=== PATIENT | female | born 1990 | race African-American/Black ===

== ENCOUNTER 2021-04-10 19:00 | Emergency (ER) | payer OTHER, SELFPAY ==
[2021-04-10 19:02] VITALS: BP 130/76; PULSE 88; RESP 18; TEMP 36.8; O2SAT 98
--- NOTE | 2021-04-10 20:12 | ED.SKABFB ---
HPI - Skin/Abscess/Foreign Bdy General Chief complaint: Skin/Abscess/Foreign Body Stated complaint: Rash Time Seen by Provider: 04/10/21 19:50 Source: patient Mode of arrival: ambulatory Limitations: no limitations History of Present Illness HPI narrative: This is a 30 year old female that presents to the ER for rash present x 2 days. Reports the rash started in her armpits and has now spread to her lower legs. Reports painful red bumps. Reports mild itching. Denies fever or discharge. Related Data Allergies Allergy/AdvReac Type Severity Reaction Status Date / Time No Known Allergies Allergy Verified 04/10/21 19:05 Review of Systems Review of Systems: CONSTITUTIONAL: Denies fever SKIN: Reports rash and itching. All systems reviewed & are unremarkable except as noted in HPI and below PMFSH Past Medical History Medical History (Updated 04/10/21 @ 20:20 by Alyx Jaramillo PA-C) No active medical problems Social History Social History (Updated 08/20/19 @ 17:14 by Jose Luis Momin PA-C) Smoking status: Current every day smoker Exam Narrative: GENERAL: Well-appearing, well-nourished, and in no acute distress. HEAD: Normocephalic, atraumatic. EYES: EOMI. EXTREMITIES: Normal range of motion. No edema. SKIN: Warm, dry. Red, papular rash present in the bilateral axilla and lower legs. Areas are tender to touch, no central fluctuance to suggest abscess NEURO: No focal deficits. Alert and oriented x3. PSYCH: Normal mood and affect Course Vital Signs Vital signs: Vital Signs Temperature 98.3 F 04/10/21 19:02 Pulse Rate 88 04/10/21 19:02 Respiratory Rate 18 04/10/21 19:02 Blood Pressure 130/76 04/10/21 19:02 Pulse Oximetry 98 04/10/21 19:02 Temperature 98.3 F 04/10/21 19:02 Pulse Rate 88 04/10/21 19:02 Respiratory Rate 18 04/10/21 19:02 Blood Pressure 130/76 04/10/21 19:02 Pulse Oximetry 98 04/10/21 19:02 MDM - Skin/Abscess/Foreign Bdy MDM Narrative Medical decision making narrative: Patient presents the emergency department for rash consistent with possible folliculitis. Patient will be started on oral antibiotics. She is to follow-up with her primary care doctor. She was given warnings to return to the ER Critical Care Time Critical Care Time Critical Care Time: No Discharge Plan Discharge Clinical Impression: Folliculitis Patient Disposition: Home, Self-Care Condition: Stable Instructions: Antibiotic Form, Folliculitis (ED) Additional Instructions: Return to the emergency department if you experience fever, redness and swelling of your wounds, abnormal drainage from your wounds, or any other symptoms that are concerning to you Keep the areas clean and dry with mild soap and water. Avoid shaving until your rash resolves. Take a Pepcid and Claritin daily. Take antibiotic as prescribed Follow-up with your primary care doctor Prescriptions: New cephalexin 500 mg capsule 500 mg PO Q6H 10 Days Qty: 40 RF: 0 Follow-up/Referrals: PHYSICIAN NOT ON STAFF,NONSTAFF [Primary Care Provider] - 1 Week
== END 2021-04-10 20:32 | disposition home or self-care (01) ==
PROVIDERS: Emergency Provider Emergency Medicine
DX: L73.9 Follicular disorder, unspecified (principal)
CPT/HCPCS: 99283

== ENCOUNTER 2021-08-17 12:37 | Outpatient (CLI) | payer OTHER, SELFPAY ==
--- NOTE | ~2021-08-17 | US_ITS ---
EXAMINATION: US OB <= 14 weeks fetus DATE: 08/17/2021 13:34 INDICATION: First trimester dating TECHNIQUE: Real-time pelvic transabdominal and transvaginal ultrasound was performed. COMPARISON: None. FINDINGS: The uterus measures 14.8 x 8.2 x 10.1 cm. There is an intrauterine gestational sac. There is a 3.5 x 1.1 x 3.6 cm hypoechoic area adjacent to the gestational sac. A yolk sac is identified. Fe halley heart motion is identified measuring 167 beats per minute (bpm) by M-mode Doppler. The chilkoot n rump length measures 4.5 cm , which correlates with an estimated gestational age of 11 weeks and 2 day(s) (+/-) 7 day(s). The right ovary is not visualized however no right adnexal abnormality is seen. The left ovary measur es 3.4 x 1.9 x 2.0 cm. There is normal vascular flow in the left ovary. There is no free fluid in the pelvis. IMPRESSION: 1. Live intrauterine with an estimated gestational age of 11 weeks and 2 day(s) (+/-) 7 day (s) and an estimated delivery date of 03/06/2022. 2. Small subchorionic hematoma. Reviewed, dictated and finalized at location A. [facility] [employer] IMPRESSION: 1. Live intrauterine with an estimated gestational age of 11 weeks an d 2 day(s) (+/-) 7 day(s) and an estimated delivery date of 03/06/2022. 2. Small subchorionic hematoma.
== END 2021-08-17 12:38 | disposition home or self-care (01) ==
PROVIDERS: Visit Provider Obstetrics & Gynecology
DX: Z36.9 Encounter for antenatal screening, unspecified (principal); O46.91 Antepartum hemorrhage, unspecified, first trimester; Z3A.11 11 weeks gestation of pregnancy
CPT/HCPCS: 76801

== ENCOUNTER 2021-08-27 05:57 | Emergency (ER) | payer OTHER, SELFPAY ==
--- NOTE | ~2021-08-27 | US_ITS ---
EXAMINATION: US OB <= 14 weeks fetus DATE: 08/27/2021 08:52 INDICATION: Nausea. Vaginal discharge. . TECHNIQUE: Real-time transabdominal pelvic ultrasound was performed. COMPARISON: Ultrasound 08/17/2021 FINDINGS: The uterus measures 14.8 x 10.3 x 10.4 cm. There is an intrauterine gestational sac. A fetus is note d and shows movement. The right ovary was not the last. The left ovary measures 2.2 x 0.8 x 2.2 cm. T here is no free fluid in the pelvis. IMPRESSION: 1. Single living intrauterine gestation with estimated date of delivery of 03/06/2022 based on the ul trasound from 08/17/2021. The patient terminated the exam early. Reviewed, dictated and finalized at location A. ARY DIRECTOR IMPRESSION: 1. Single living intrauterine gestation with estimated date of delivery of 02/07 based on the ultrasound from 08/17/2021. The patient terminated the exam early.
[2021-08-27 06:01] VITALS: BP 113/71; PULSE 71; RESP 17; TEMP 36.3; O2SAT 100
[2021-08-27 06:42] LABS: Basophils Percent Auto 0.3 % (0.2-1.2); Eosinophils Absolute Auto 0.1 K/mm3 (0-0.3); Eosinophils Percent Auto 0.8 % (0-4.4); Hematocrit 37.4 % (37.0-47.0); Hemoglobin 12.4 g/dL (12.0-15.0); Immature Granulocyte Absolute 0.04 K/mm3 (0.00-0.031); Immature Granulocyte Percent A 0.7 % (0-0.5); Lymphocytes Absolute Auto 1.29 K/mm3 (0.9-3.2); Lymphocytes Percent Auto 21.8 % (18.3-44.2); Mean Corpuscular HGB Conc 33.2 g/dl (32-36); Mean Corpuscular Hemoglobin 31.6 pg (26-34); Mean Corpuscular Volume 95.2 fl (80-100); Mean Platelet Volume 8.8 fl (7.4-10.4); Monocytes Absolute Auto 0.5 K/mm3 (0.1-0.6); Monocytes Percent Auto 8.1 % (2.6-8.5); Neutrophils Percent Auto 68.3 % (45.5-73.1); Platelet Count Result 230 k/mm3 (150-375); Red Blood Count 3.93 M/mm3 (4.2-5.4); Red Cell Distribution Width 11.9 % (11.5-14.5); White Blood Count 5.9 K/mm3 (4.5-10.0)
[2021-08-27 06:58] LABS: Add Urine Microscopic? YES; Appearance Urine Cloudy (Clear); Bacteria Urine Trace /hpf; Bilirubin Urine Negative (Negative); Blood Urine 1+ (Negative); Color Urine Yellow (Yellow); Glucose Urine UA Negative (Negative); Ketones Urine Negative (Negative); Leukocyte Esterase Ur Trace LEU/UL (Negative); Mucus Urine Few /lpf; Nitrate Urine Negative (Negative); Protein Urine 1+ mg/dL (Negative); Specific Grav Ur 1.024 (1.001-1.035); Squamous Epithelial Cell Urine Many /hpf (Few)
[2021-08-27 07:01] LABS: Alanine Aminotransferase 14 U/L (4-35); Albumin Level 4.1 g/dL (3.5-5.1); Alkaline Phosphatase 50 U/L (38-126); Anion Gap 5 mmol/L (8-16); Aspartate Amino Transferase 28 U/L (14-36); Bilirubin,Total 0.5 mg/dL (0.2-1.3); Blood Urea Nitrogen 8 mg/dL (7-17); Carbon Dioxide 26 mmol/L (22-30); Chloride 101 mmol/L (98-107); Estimated CRCL calculation 118 ml/min; Estimated Glomerular Filt Rate > 60; Glucose 92 mg/dL (65-110); Potassium 4.1 mmol/L (3.4-5.0); Sodium 132 mmol/L (137-145)
--- NOTE | 2021-08-27 09:08 | ED.FEMALEGU ---
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 Patient is 3, para 2, 0, 12 weeks . Patient was seen by her MINE INSPECTOR FEDERAL few weeks ago for similar symptoms. Related Data Home Medications Medication Instructions Recorded Confirmed No Home Medications 08/27/21 08/27/21 Allergies Allergy/AdvReac Type Severity Reaction Status Date / Time No Known Allergies Allergy Verified 08/27/21 06:05 Review of Systems Review of Systems: CONSTITUTIONAL: Denies fever, chills, or sweats. EYES: Denies visual changes, redness, or discharge. ENT: Denies rhinorrhea, congestion, sore throat, or otalgia. CARDIOVASCULAR: Denies chest pain, palpitations, or edema. RESPIRATORY: Denies cough or dyspnea. GASTROINTESTINAL: Denies abdominal pain, nausea, vomiting, or diarrhea. GENITOURINARY: Denies dysuria or hematuria. SKIN: Denies rash or itching. MUSCULOSKELETAL: Denies back pain, joint pain, or myalgia. NEUROLOGIC: Denies headache, numbness, or weakness. PSYCHIATRIC: Denies anxiety or depression. PMFSH Past Medical History Medical History No active medical problems Social History Social History Smoking status: Current every day smoker Exam Narrative: General appearance: Well-developed, well-nourished Skin: Normal color Head: Normocephalic, nontraumatic Eyes: Clear conjunctiva ENT: Oropharynx normal, ears normal, nose normal Neck: Supple, nontender Chest and respiratory: Airway patent, no respiratory distress, no accessory muscle use Heart: Regular rate/rhythm Abdomen: Soft, nontender, no organomegaly, quiet bowel sounds Vascular: Normal peripheral pulses, normal capillary refill. Musculoskeletal: Normal range of motion, nontender back Neurologic: Alert and oriented ?3, PHYSICS PROFESSOR is normal as tested, no gross motor deficit Course Course Emergency Course: Stable Reevaluation(s) Reevaluation #1: Patient declined pelvic exam, also terminated the ultrasound procedure early Date: 08/27/21 Time: 09:25 Vital Signs Vital signs: Vital Signs Temperature 36.3 C L 08/27/21 06:01 Pulse Rate 71 08/27/21 06:01 Respiratory Rate 17 08/27/21 06:01 Blood Pressure 113/71 08/27/21 06:01 Pulse Oximetry 100 08/27/21 06:01 Temperature 36.3 C L 08/27/21 06:01 Pulse Rate 71 08/27/21 06:01 Respiratory Rate 17 08/27/21 06:01 Blood Pressure 113/71 08/27/21 06:01 Pulse Oximetry 100 08/27/21 06:01 MDM - Female Genitourinary Lab Data Result diagrams: 08/27/21 06:37 08/27/21 06:37 Labs: Lab Results 08/27/21 08/27/21 08/27/21 Range/Units 06:37 06:37 06:37 WBC 5.9 (4.5-10.0) K/mm3 RBC 3.93 L (4.2-5.4) M/mm3 Hgb 12.4 (12.0-15.0) g/dL Hct 37.4 (37.0-47.0) % MCV 95.2 (80-100) fl MCH 31.6 (26-34) pg MCHC 33.2 (32-36) g/dl RDW 11.9 (11.5-14.5) % Plt Count 230 (150-375) k/mm3 MPV 8.8 (7.4-10.4) fl Immature Gran % (Auto) 0.7 H (0-0.5) % Neut % (Auto) 68.3 (45.5-73.1) % Lymph % (Auto) 21.8 (18.3-44.2) % Logan % (Auto) 8.1 (2.6-8.5) % Eos % (Auto) 0.8 (0-4.4) % Baso % (Auto) 0.3 (0.2-1.2) % Lymph # (Auto) 1.29 (0.9-3.2) K/mm3 Logan # (Auto) 0.5 (0.1-0.6) K/mm3 Eos #
== END 2021-08-27 09:37 | disposition home or self-care (01) ==
PROVIDERS: Emergency Medicine; Emergency Provider Emergency Medicine
DX: O20.0 Threatened abortion (principal); O99.331 Smoking (tobacco) complicating pregnancy, first trimester; F17.200 Nicotine dependence, unspecified, uncomplicated; Z3A.12 12 weeks gestation of pregnancy
CPT/HCPCS: 36415; 76801; 80053; 81001; 81025; 84702; 85025; 85461; 87086; 99284

== ENCOUNTER 2021-09-14 12:51 | Outpatient (CLI) | payer OTHER, SELFPAY ==
--- NOTE | ~2021-09-14 | US_ITS ---
EXAMINATION: US OB follow up DATE: 09/14/2021 13:35 INDICATION: Subchorionic hematoma, second trimester TECHNIQUE: Real-time ultrasound of the pelvis was performed. The interpreting radiologist was not pre sent for the study. COMPARISON: 08/27/2021 FINDINGS: There is a single living fetus in breech presentation. No persistent subchorionic hematoma is identified. The placenta is posterior. cardiac activity and movement are noted. heart rate is 132 beats per minute (bpm). The amniotic fluid index is subjectively normal. The following biometric data were obtained: Biparietal diameter (BPD): 3.3 cm; head circumference (HC): 12. cm; abdominal circumference (AC): 10. 1 cm; femur length (FL): 1.8 cm. These measurements are concordant. Estimated weight is 134 g +/- 20 g, which correlates with the 74th percentile when 03/06/2022 is used as estimated date of delivery. As single measurements, these parameters are each equal to the following estimated gestational ages w ith ranges of +/- 2 standard deviations: BPD: 16 weeks 3 days +/- 1 weeks 1 days. HC: 16 weeks 0 days +/- 1 weeks 1 days. AC: 16 weeks 1 days +/- 1 weeks 5 days. FL: 15 weeks 2 days +/- 1 weeks 3 days. estimated gestational age based solely on measurements from this exam is 16 weeks 0 days +/- 1 weeks 1 days. IMPRESSION: 1. Single living fetus in breech presentation. 2. No persistent subchorionic hematoma identified. 3. Estimated weight is 134 g +/- 20 g, which correlates with the 74th percentile when 03/06/2022 is used as estimated date of delivery. Reviewed, dictated and finalized at location F. GER CODING IMPRESSION: 1. Single living fetus in breech presentation. 2. No persistent subchorionic hematoma identified. 3. Estimated weight is 134 g +/- 20 g, which correlates with the 74th per centile when 03/06/2022 is used as estimated date of delivery.
== END 2021-09-14 12:52 | disposition home or self-care (01) ==
PROVIDERS: Visit Provider Obstetrics & Gynecology
DX: O36.8920 Maternal care for other specified fetal problems, second trimester, not applicable or unspecified (principal); Z3A.16 16 weeks gestation of pregnancy
CPT/HCPCS: 76816

== ENCOUNTER 2021-10-12 08:18 | Outpatient (CLI) | payer OTHER, SELFPAY ==
--- NOTE | ~2021-10-12 | US_ITS ---
US OB /maternal detail DATE: 10/12/2021 08:59 INDICATION: anatomy screen TECHNIQUE: Real-time imaging and Doppler analysis COMPARISON: 09/14/2019 obstetrical ultrasound FINDINGS: Live retana intrauterine gestation, fetus in vertex presentation, longitudinal lie with heart rate of 150 bpm. Normal size of cerebral ventricles. Cerebellum is normal. Cisterna magna, nuchal fold are libby l. The spine appears intact on transverse and longitudinal images. diaphragm is intact. F luid is demonstrated in the stomach and kidneys. No hydronephrosis. Three-vessel umbilica l cord is noted with normal insertion at abdominal wall. male external genitalia are demonstrated. extremities are demonstrated. Posterofundal placenta. Biparietal diameter 4.36 cm; 19 weeks 1 day Head circumference 15.96 cm; 18 weeks 6 days Abdominal circumference 14.34 cm; 19 weeks 5 days Femur length 3.13 cm; 19 weeks 5 days Composite age by Hadlock formula based upon the current measurements would be 19 weeks 3 days +/- 1 w cocopah 3 days with ODALYS of 03/05/2022, compared to 03/06/2022 by LMP. Estimated weight is 301.7 +/- 45.3 g. Estimated weight-GP: 64.2% Head circumference/abdominal circumference 1.11, within normal range of 1.0-1.26 Femur length/head circumference 19.63, slightly above normal range of 16.40-80.94 IMPRESSION: Normal anatomy screen Reviewed, dictated and finalized at Location A. Reviewed, dictated and finalized at location B. ACUTE DIALYSIS IMPRESSION: Normal anatomy screen
== END 2021-10-12 08:19 | disposition home or self-care (01) ==
PROVIDERS: Visit Provider Obstetrics & Gynecology Gynecology
DX: Z34.92 Encounter for supervision of normal pregnancy, unspecified, second trimester (principal); Z3A.19 19 weeks gestation of pregnancy
CPT/HCPCS: 76805

== ENCOUNTER 2021-12-28 11:06 | Outpatient (CLI) | payer OTHER, SELFPAY ==
--- NOTE | ~2021-12-28 | US_ITS ---
EXAMINATION: US OB follow up DATE: 12/28/2021 12:05 INDICATION: Estimated size greater than expected for estimated gestational age TECHNIQUE: Real-time ultrasound of the pelvis was performed. The interpreting radiologist was not pre sent for the study. COMPARISON: 10/12/2021 FINDINGS: There is a single living fetus in transverse lie. The placenta is posterior. heart rate is 134 beats per minute (bpm). The amniotic fluid index is 12.8 cm, which is normal (5th%-95%: 9.0-23.4 cm at 30 weeks estimated gestational age). The following biometric data were obtained: BPD: 7.4 cm -> 29 weeks 5 days Head circumference: 28.4 cm -> 31 weeks 1 days Abdominal circumference: 27.6 cm -> 31 weeks 5 days Femur length: 5.8 cm -> 30 weeks 2 days These measurements are concordant. Head circumference to abdominal circumference ratio: 1.03 (normal range 0.96-1.18). Estimated weight: 1690 g (+/-) 254 g or 3 lbs. 12 oz. (+/-) 9 oz. IMPRESSION: 1. Single living fetus in transverse lie with heart rate of 134 bpm. 2. Normal amniotic fluid index of 12.8 cm. 3. Estimated weight is 65th percentile by Hadlock criteria when 03/06/2022 is used as the estima allison date of delivery (ODALYS). Please correlate with clinical information or earlier ultrasounds for mos t accurate ODALYS. Reviewed, dictated and finalized at location A. IMPRESSION: 1. Single living fetus in transverse lie with heart rate of 134 bpm. 2. Normal amniotic fluid index of 12.8 cm. 3. Estimated weight is 65th percentile by Hadlock criteria when 03/06/2022 is used as the estimated date of delivery (ODALYS). Please correlate with clinica l information or earlier ultrasounds for most accurate ODALYS.
== END 2021-12-28 11:07 | disposition home or self-care (01) ==
LOC: ANHIMG 11:09
PROVIDERS: Visit Provider Obstetrics & Gynecology Gynecology
DX: O36.60X0 Maternal care for excessive fetal growth, unspecified trimester, not applicable or unspecified (principal); Z3A.00 Weeks of gestation of pregnancy not specified
CPT/HCPCS: 76816

== ENCOUNTER 2022-02-11 14:24 | Outpatient (RCR) | payer OTHER, SELFPAY ==
--- NOTE | 2022-02-11 17:45 | PTOPEVAL ---
PHYSICAL THERAPY EVALUATION AND DISCHARGE NOTE Thank you for referring Yesi Siddiqi to [facility].? Evaluated [place] today for back pain in . Evaluation reveals significant limitation in mobility of spine and ribs and spasms to lumbar musculature. Due to stage of her , PT treatments are limited. She was provided with HEP for stretching and advice to manage symptoms until delivery. No further care plan developed at this time. Please review, sign, date and return this plan of care MICHELLE. I agree with and certify that the following plan of care is medically necessary. Referring Physician Date Attending Provider: Germaine Serrato MD Diagnosis low back pain Onset 3-4 weeks ago Subjective Information has a lot of lower back pain Query Text:As Reported By Patient/ and numbness. She is in her Family last month of pregancy (37 weeks) and pain started about 3-4 weeks ago. She states that she has numbness in the right leg after sitting too long. States that sitting, standing up, walking are all painful. Self Report Pain Assessment Back Reported Pain Level 7 Pain Score Pain Score 7: Self Report Interventions Used Interventions Used By Clinicians Exercise,Joint Mobilization Pain Relief Interventions Used By None Patient Cervical and Lumbar ROM Lumbar ROM Lumbar Comments limited ROM secondary to abdomen; did demonstrate a olena's sign upon return to standing Posture Additional Posture Comments patient tends to weight shift toward the right LE; typical posture with increased lordsis lumbar spine and stiff thoracic spine Palpation significant spasm to bilateral lower back paraspinals, rhomboids; decreased scapular mobility on left; significant hypomobiity of thoracic spine and ribs moreso than might be expected during General Exercise Exercise Description -sitting piriformis stretch Query Text:Record Sets, Reps, -sitting hamstring stretch Resistance, and Position -sidelying thoracic rotation stretch -standing doorway latissimus and quadratus stretch --discussed findings of assessment and described
== END 2022-02-12 14:40 | disposition home or self-care (01) ==
LOC: ANHPT 14:24
PROVIDERS: Referring Provider Obstetrics & Gynecology Gynecology; Visit Provider Obstetrics & Gynecology Gynecology
DX: M54.9 Dorsalgia, unspecified (principal)
CPT/HCPCS: 97110; 97162

== ENCOUNTER 2022-02-18 10:03 | Inpatient (IN) | payer OTHER, SELFPAY ==
[2022-02-18] VITALS (170 sets, daily range): BP systolic 59–150; BP diastolic 30–131; PULSE 39–219; RESP 12–19; TEMP 36.1–37.6; O2SAT 73–100; BMI 37.8
--- NOTE | 2022-02-18 10:45 | WPDOBADMIT ---
Obstetrics - Admit Note Admission Note: record reviewed. No pertinent additions to the history and/or any subsequent changes in the physical findings that are not consistent with the expected course of the were found. Additions to the history and/or subsequent changes in the physical findings follow. None. The patient is admitted to Labor and delivery with grossly ruptured membranes. Patient is not dario. Cervix per RN is 2cm thick and high. Bedside ultrasound is performed and vertex position is noted. Induction of labor versus is waiting [id number] before starting Pitocin were reviewed with the patient. She prefers to see if labor starts within the 6hour time frame. heart tones are category 1. Patient has consented to management of her labor by Kourtney Zulugaa CNM and report is given to her.
[2022-02-18 11:15] LABS: Basophils Percent Auto 0.3 % (0.2-1.2); Eosinophils Absolute Auto 0.1 K/mm3 (0-0.3); Eosinophils Percent Auto 1.2 % (0-4.4); Hematocrit 31.7 % (37.0-47.0); Hemoglobin 10.3 g/dL (12.0-15.0); Immature Granulocyte Absolute 0.09 K/mm3 (0.00-0.031); Lymphocytes Absolute Auto 1.39 K/mm3 (0.9-3.2); Lymphocytes Percent Auto 14.8 % (18.3-44.2); Mean Corpuscular HGB Conc 32.5 g/dl (32-36); Mean Corpuscular Hemoglobin 29.3 pg (26-34); Mean Corpuscular Volume 90.1 fl (80-100); Mean Platelet Volume 9.6 fl (7.4-10.4); Monocytes Percent Auto 10.3 % (2.6-8.5); Neutrophils Absolute Auto 6.8 K/mm3 (1.3-6.7); Neutrophils Percent Auto 72.4 % (45.5-73.1); Platelet Count Result 254 k/mm3 (150-375); Red Blood Count 3.52 M/mm3 (4.2-5.4); Red Cell Distribution Width 13.6 % (11.5-14.5); White Blood Count 9.4 K/mm3 (4.5-10.0)
[2022-02-18] MEDS: LACTATED RINGERS 1,000 ML 125 ML IV CONT ×4 (11:29→18:20)
[2022-02-18] MEDS: AMPICILLIN 2 GM/NS 100 ML 2 GM/100 ML BAG IVPB (11:30)
--- NOTE | 2022-02-18 11:46 | LDADM ---
This patient, Ervin Siddiqi, was admitted to Labor/Delivery/Recovery 105 on 02/18/22 at 10:03. Plans for labor, pain management and were discussed with patient. Patient/family oriented to hospital policies and general routines including ID bracelet, bed and alarms, visiting hours, pain management, procedures, bathroom and other care routines, personal items, smoking policy, room service/diet and guest tray routines, security routines, and visiting hours. Patient/Family are encouraged to report perceived risks to care and to ask questions if they do not understand what they are told or what they should do. See OBIX for further documentation.
--- NOTE | 2022-02-18 14:52 | WPDANESEPPF ---
Anes - Initial Pre Proc Eval Procedure: labor epidural Date/Time: 02/18/22 14:52 Surgeon: Germaine Serrato MD Pre Op Diagnosis: labor pain Pre Op Diagnosis: labor Patient Data Age: 31 Gender: F Height: 1.63 m Weight: 100 kg Last Vital Signs Temp 36.8 C 02/18/22 14:00 Pulse 78 02/18/22 14:50 BP 107/59 L 02/18/22 14:50 Pulse Ox 100 02/18/22 14:49 Allergies Allergy/AdvReac Type Severity Reaction Status Date / Time No Known Allergies Allergy Verified 02/18/22 11:05 Home Medications Medication Instructions Recorded Confirmed Type vit no.133-ferrous 1 tablet PO DAILY 02/18/22 02/18/22 History fumarate 28 mg-folic acid 800 mcg tablet () Laboratory Tests 02/18/22 02/18/22 02/18/22 11:00 11:00 11:00 WBC 9.4 K/mm3 K/mm3 (4.5-10.0) RBC 3.52 M/mm3 L M/mm3 (4.2-5.4) Hgb 10.3 g/dL L g/dL (12.0-15.0) Hct 31.7 % L % (37.0-47.0) MCV 90.1 fl fl (80-100) MCH 29.3 pg pg (26-34) MCHC 32.5 g/dl g/dl (32-36) RDW 13.6 % % (11.5-14.5) Plt Count 254 k/mm3 k/mm3 (150-375) MPV 9.6 fl fl (7.4-10.4) Immature Gran % (Auto) 1.0 % H % (0-0.5) Neut % (Auto) 72.4 % % (45.5-73.1) Lymph % (Auto) 14.8 % L % (18.3-44.2) Kimball % (Auto) 10.3 % H % (2.6-8.5) Eos % (Auto) 1.2 % % (0-4.4) Baso % (Auto) 0.3 % % (0.2-1.2) Lymph # (Auto) 1.39 K/mm3 K/mm3 (0.9-3.2) Kimball # (Auto) 1.0 K/mm3 H K/mm3 (0.1-0.6) Eos # (Auto) 0.1 K/mm3 K/mm3 (0-0.3) Baso # (Auto) 0.0 K/mm3 K/mm3 (0.0-0.1) Abs Immat Gran (auto) 0.09 K/mm3 H K/mm3 (0.00-0.031) Absolute Neuts (auto) 6.8 K/mm3 H K/mm3 (1.3-6.7) Absolute Nucleated RBC 0.0 K/mm3 K/mm3 (0.0-0.012) Nucleated RBC % 0.0 % % (0.0-0.2) RPR Pending Blood Type B Positive Antibody Screen Negative Patient hx anesthesia problems: none Family hx anesthesia problems: none Results Review: All pre-operative results and documents have been reviewed as part of the pre-operative evaluation. [facility] Social History Social History Years smoked: 30 Smoking status: Light tobacco smoker Second hand tobacco smoke exposure: Yes Substance use: never Other substance usage details: alcohol early in Spiritual care concerns: No Anes - Eval Final PreProcedure Day of Procedure 02/18/22 14:52 Patient weight: obese ASA classification: II Anesthetic plan: proceed Anesthesia type and monitoring: regional epidural and standard monitoring Results Review: All pre-operative results and documents have been reviewed as part of the pre-operative evaluation. Informed Consent: The patient's anesthetic plan and its attendant risks and benefits were discussed with the patient/family/POA. Questions were solicited and answers provided to the satisfaction of the patient/family/POA.
[2022-02-18] MEDS: AMPICILLIN 1 GM/NS 50 ML 1 GM/50 ML BAG IVPB (15:35)
[2022-02-18] MEDS: OXYTOCIN 30 UNITS/NS 500 ML 30 UNITS/500 ML BAG IV CONT (17:40)
[2022-02-18] MEDS: TERBUTALINE SULFATE 1 MG/ML VIAL (18:41)
[2022-02-18] MEDS: SODIUM CHLORIDE 0.9% IV 300 ML 600 ML I-UTERINE (18:42)
--- NOTE | 2022-02-18 19:22 | PM.IMHP ---
H&P: HPI History of Present Illness Date/Time: 02/18/22 19:22 Chief Complaint: intolerance of labor Narrative: The patient is a 31-year-old 4 para 2 aborta 1 admitted with spontaneous rupture of membranes earlier today not in labor. Patient had progressed to 5cm/ 50% effaced and -3 station. I was called at approximately 4:00 p.m. for an episode of spontaneous bright red bleeding [id number]. On exam the patient was as stated above. Once the clots and bleeding were removed from the vagina and the patient was observed the bleeding stopped. No change in heart tones at that time were noted. Pitocin was begun for prolonged rupture. Patient has had no further progress in her cervical exam Except for now effaced to 80%. heart tracing showed several late decelerations approximately 17 20 which did resolve for [id number]. Patient had a run of decelerations and bradycardic episodes that did eventually respond to position change and terbutaline. I was called when terbutaline was given and arrived at 6:50 p.m.. After reviewing the tracing and discussing the case with the patient it was recommended to proceed with at approximately 6:54 p.m.. The patient many questions and discussion continued for the next half an hour. Patient requested time alone with the father of the baby. When we went back in to discuss further the patient has now agreed to proceed with and is being taken to the operating room. Risks of including bleeding, infection, injury to internal organs, risk if she determine staff future children for were discussed. Risks of not doing the were discussed in detail throughout the conversations. labs B positive, rubella immune, HIV negative, RPR negative, hepatitis-B surface antigen negative group B strep positive. The patient's initial drug screen in the office at 8 weeks revealed positive alcohol and nicotine. Risks of smoking and alcohol use during were discussed throughout the with the patient. She continued to drink alcohol and at 1 point considered aborting the . In addition the patient has continued to smoke cigarettes. Patient has been informed of the risks of alcohol syndrome and changes due to the drinking alcohol and cigarettes. [facility] Past Medical History Medical History (Updated 02/18/22 @ 19:32 by Germaine Serrato MD) (normal spontaneous vaginal delivery) X2 Social History Social History Years smoked: 30 Smoking status: Light tobacco smoker Second hand tobacco smoke exposure: Yes Substance use: never Other substance usage details: alcohol early in Spiritual care concerns: No Meds Home Medications and Allergies Home Medications Medication Instructions Recorded Confirmed Type vit no.133-ferrous 1 tablet PO DAILY 02/18/22 02/18/22 History fumarate 28 mg-folic acid 800 mcg tablet () Allergies Allergy/AdvReac Type Severity Reaction Status Date / Time No Known Allergies Allergy Verified 02/18/22 11:05 Vital Signs Vital Signs - 24 hr 02/18/22 10:30 02/18/22 11:31 02/18/22 11:59 Temperature Pulse Rate 88 87 83 Blood Pressure 116/63 98/67 L 115/68 Pulse Oximetry Oxygen Delivery 02/18/22 12:01 02/18/22 12:16 02/18/22 12:31 Temperature Pulse Rate 82 112 H 85 Blood Pressure 115/67 121/53 L 104/57 L Pulse Oximetry Oxygen Delivery 02/18/22 13:00 02/18/22 13:03 02/18/22 13:16 Temperature 97.8 F Pulse Rate 81 110 H Blood Pressure 107/54 L 124/86 Pulse Oximetry Oxygen Delivery 02/18/22 13:31 02/18/22 14:02 02/18/22 14:20 Temperature Pulse Rate 84 103 H 81 Blood Pressure 100/66 125/92 H 120/63 Pulse Oximetry Oxygen Delivery 02/18/22 14:00 02/18/22 14:31 02/18/22 14:36 Temperature 98.2 F Pulse Rate 78 Blood Pressure 89/67 L Pulse Oxi
[2022-02-18] MEDS: ceFAZolin 2 GM/D5W 50 ML 2 GM/50 ML BAG IVPB (19:24)
--- NOTE | 2022-02-18 19:24 | P.PNOB_ITS ---
Pain Control Date/time seen: 02/18/22 1840 Pain control: epidural Pelvic Exam Dilation (cm): 5 Effacement (%): 80 station: -3 Amniotic membrane status: Ruptured Contractions Monitor mode: Internal Contraction pattern: Irregular Contraction intensity: Strong/Firm Status status: Category ll Assessment and Plan Comments: CNM to bedside for SVE (80/-3) with head not well applied to cervix. FSE applied due to intermittent variable and late decelerations. Prolonged FHT deceleration followed which resoved with maternal repositioning, oxytocin dis continuation, and terbutaline sulfate. IUPC also started during this time. Called Dr. Serrato to come to hospital for further evaluation. Thoroughly discussed FHT decelerations and possible causes with pt and her partner. Answered all pt questions. Also discussed possibility of section with Ervin and her partner. FHTs continue to remain Cat 2.
[2022-02-18] MEDS: diphenhydrAMINE HCl INJ 50 MG/ML VIAL 25 MG IV PUSH (20:03)
[2022-02-18] MEDS: ONDANSETRON INJ 4 MG/2 ML VIAL IV PUSH (20:03)
[2022-02-18] MEDS: KETOROLAC 30 MG/ML VIAL (*BKC) 15 MG IV PUSH (20:05)
--- NOTE | 2022-02-18 20:08 | W.PM.PROC2 ---
Procedure Note - Detailed Date of Procedure 02/18/22 Pre-op Diagnosis Intrauterine at 38 and 4/7 weeks spontaneous rupture of membranes in labor with decelerations and bradycardic episodes Post-op Diagnosis Same Procedure Performed primary low-transverse section Surgeon Germaine Serrato MD Anesthesia Epidural Findings Position was occiput posterior of the male was 6lb 2oz with 6 and 9 Apgars. Uterine fibroids with normal-appearing tubes and ovaries. Small placenta without evidence of abruption. Description of Procedure the patient was taken to the operating room and placed under anesthesia in the dorsal supine position with a leftward tilt. The patient was prepped and draped in the usual sterile fashion. The anesthesia was deemed adequate and a Pfannenstiel skin incision made with a scalpel and carried down to the underlying fascia which was nicked in the midline. The fascial incision was extended laterally using Pinzon scissors. Ochsner was used to tent the fascia which was then dissected off using sharp and blunt dissection. The rectus muscles were in the midline and the peritoneum tented. The peritoneum was entered with Metzenbaum and extended with blunt traction. The bladder blade is placed. The vesicouterine peritoneum was tented with a Peon and entered with Metzenbaum. The incision was extended laterally and the bladder flap created digitally the bladder blade is replaced. The lower uterine segment incised in a transverse fashion with the scalpel. the incision was extended laterally using blunt traction. The infant's head was brought up into the incision and noted to be in the left occiput posterior position. The 's head is delivered while the digital marketing assistant applied fundal pressure. At that time the uterus contracted around the head. The incision was extended the with banded scissors to the left. The was then able to be delivered. The cord was clamped and cut the infant handed to the waiting nursery nurse and high school foreign language teacher. The cord gases and blood were drawn. The placenta was removed using manual traction. The uterus is cleared of all clots and debris and attempted to be exteriorized however due to fibroids this was not successful. There was a fibroid noted at the anterior surface of the uterine incision which is possibly the cause of the difficulty getting the out. The uterine incision was closed using 0 Monocryl in a running locked fashion. Same suture was used to imbricate. Good hemostasis is noted. The gutters are irrigated. The incision was again inspected noted to be hemostatic. The fascia was closed using 0 Vicryl in a running fashion. Subcutaneous tissues were irrigated made hemostatic using Bovie cautery. Subcuticular closure using 4-0 Vicryl with a Umesh needle was performed. Dermaflex was placed over the incision. Patient was given Ancef prior to skin incision. Sponge, needle, and instrument counts are correct per the OR staff. Estimated Blood Loss 740 Urine Output 1,800 Drains Yes ( Santos catheter) Packing No Pathology Yes ( placenta) Complications No immediate complications Condition Stable Disposition Floor
--- NOTE | 2022-02-18 20:20 | PM.OBDSVD ---
DS: Admitting Diagnosis Discharge Date 02/21/22 Admitting Diagnosis intrauterine at 30 and 4/ 7th weeks with spontaneous rupture of membranes DS: Discharge Diagnosis Discharge Diagnosis (1) 38 weeks gestation of : Code(s): Z3A.38 - 38 weeks gestation of Status: Acute (2) intolerance to labor, delivered, current hospitalization: Code(s): O77.9 - Labor and delivery complicated by stress, unspecified Status: Acute (3) delivery delivered: Code(s): O82 - Encounter for delivery without indication Status: Acute OB - DS: Summary OB Procedures : NST and Ultrasound OB Procedures Intrapartum: low cervical, transverse OB Procedures: : None Peripartum Data Delivery Method: Section Procedures: Procedures Operation Date: 02/18/22 20:00 <No data on this case meets the specified criteria> complications: none Status at Discharge Functional status at discharge: independent ambulation Overall status at discharge: patient is progressing back to baseline Time Spent with Patient Time attestation: Total time spent providing and/or coordinating discharge services: DS: Data Data Completed and Pending Labs on day of discharge: Labs from last 24 hours 02/18/22 02/18/22 02/18/22 11:00 11:00 11:00 WBC 9.4 RBC 3.52 L Hgb 10.3 L Hct 31.7 L MCV 90.1 MCH 29.3 MCHC 32.5 RDW 13.6 Plt Count 254 MPV 9.6 Immature Gran % (Auto) 1.0 H Neut % (Auto) 72.4 Lymph % (Auto) 14.8 L Harnett % (Auto) 10.3 H Eos % (Auto) 1.2 Baso % (Auto) 0.3 Lymph # (Auto) 1.39 Harnett # (Auto) 1.0 H Eos # (Auto) 0.1 Baso # (Auto) 0.0 Abs Immat Gran (auto) 0.09 H Absolute Neuts (auto) 6.8 H Absolute Nucleated RBC 0.0 Nucleated RBC % 0.0 RPR Pending Blood Type B Positive Antibody Screen Negative Discharge Plan Discharge Attending physician on discharge: Germaine Serrato Discharging Clinician: Germaine Serrato Anticipated Discharge Date/Time: 02/21/22 20:21 Patient Disposition: Home, Self-Care Activity: no shower, may drive after 2 weeks and pelvic rest Diet: regular Wound Care Instructions: incision open to air Discharge Instructions: Education: Mom and Baby Guide Given to: Follow-Up: Call your delivering provider's office for an appointment to be seen in: Mom and baby [facility] for the follow-up appointment. Appointment Date/Time: at What to expect at your follow-up visit: 02/22/22 @ 1100 Call [phone] if you are unable to keep your appointment time. BREAST CARE: * Wear a snug supportive bra. * For engorgement discomfort: Breast Feeding: * Apply warm moist washcloths * Express milk as needed to relieve engorgement * Wear loose clothing Bottle Feeding: * May apply ice packs * For sore nipples: * Identify correct latch-on * Apply warm moist washcloths before and after nursing * Air dry nipples after nursing * May apply Lansinoh cream to nipples ABDOMINAL INCISION: (if applicable) * Allow incision to air dry * Do NOT use lotions for powders on your incision * When showering, allow soap and water to run over the incision, but do not wash incision PERINEAL CARE: * Until bleeding stops, use your danae bottle after urinating * Change your pad frequently throughout the day * No tub baths until seen by your physician - You may shower ACTIVITY: * Rest as much as possible. * Do not exercise or lift anything heavier than your baby (such as laundry or other children.) * Avoid stairs or driving as much as possible. * Do not put anything into the vagina. No douching, tampons, or sexual activity until seen by physician. NOTIFY PHYSICIAN IF YOU YOUNG
[2022-02-19] VITALS (7 sets, daily range): BP systolic 95–126; BP diastolic 61–77; PULSE 78–88; RESP 16–18; TEMP 36.7–37.9; O2SAT 97–100
[2022-02-19] MEDS: DEXTROSE 5%/0.45% SOD CHL 1,000 ML 125 ML IV CONT (01:00)
[2022-02-19 04:58] LABS: Basophils Absolute Auto 0.1 K/mm3 (0.0-0.1); Basophils Percent Auto 0.5 % (0.2-1.2); Eosinophils Absolute Auto 0.1 K/mm3 (0-0.3); Eosinophils Percent Auto 0.7 % (0-4.4); Hematocrit 25.6 % (37.0-47.0); Hemoglobin 8.1 g/dL (12.0-15.0); Immature Granulocyte Absolute 0.07 K/mm3 (0.00-0.031); Immature Granulocyte Percent A 0.7 % (0-0.5); Lymphocytes Absolute Auto 1.14 K/mm3 (0.9-3.2); Mean Corpuscular HGB Conc 31.6 g/dl (32-36); Mean Corpuscular Hemoglobin 28.7 pg (26-34); Mean Corpuscular Volume 90.8 fl (80-100); Monocytes Absolute Auto 0.8 K/mm3 (0.1-0.6); Monocytes Percent Auto 8.1 % (2.6-8.5); Neutrophils Absolute Auto 8.2 K/mm3 (1.3-6.7); Platelet Count Result 190 k/mm3 (150-375); Red Blood Count 2.82 M/mm3 (4.2-5.4); Red Cell Distribution Width 13.3 % (11.5-14.5); White Blood Count 10.4 K/mm3 (4.5-10.0)
--- NOTE | 2022-02-19 07:59 | P.PNOB_ITS ---
OB - PN: Subj Subjective Date/time seen: 02/19/22 07:50 Patient comments: pain well controlled [place] baby status: doing well [place] feeding status: other (attempting to breast feed, pumping) OB - PN: Obj Data Labs CBC & Chem 7: 02/19/22 04:33 Labs: Laboratory Results - last 24 hr 02/18/22 02/18/22 02/19/22 11:00 11:00 04:33 WBC 9.4 10.4 H RBC 3.52 L 2.82 L Hgb 10.3 L 8.1 L Hct 31.7 L 25.6 L MCV 90.1 90.8 MCH 29.3 28.7 MCHC 32.5 31.6 L RDW 13.6 13.3 Plt Count 254 190 MPV 9.6 9.0 Immature Gran % (Auto) 1.0 H 0.7 H Neut % (Auto) 72.4 79.0 H Lymph % (Auto) 14.8 L 11.0 L Mccormick % (Auto) 10.3 H 8.1 Eos % (Auto) 1.2 0.7 Baso % (Auto) 0.3 0.5 Lymph # (Auto) 1.39 1.14 Mccormick # (Auto) 1.0 H 0.8 H Eos # (Auto) 0.1 0.1 Baso # (Auto) 0.0 0.1 Abs Immat Gran (auto) 0.09 H 0.07 H Absolute Neuts (auto) 6.8 H 8.2 H Absolute Nucleated RBC 0.0 0.0 Nucleated RBC % 0.0 0.0 Blood Type B Positive Antibody Screen Negative OB - PN A/P Plan day: 1 Plan: routine care Time Spent With Patient Time: Total time spent is greater than 50% in coordination of care (as documented) at patient's floor/unit and/or counseling patient: Review of Systems Review of Systems: All systems reviewed & are unremarkable except as noted in HPI and below Exam Const: General: cooperative, comfortable and no acute distress Resp: Effort & Inspection: normal respiratory effort Auscultation: clear to auscultation bilaterally Cardio: Rate: regular rate Heart sounds: S1 normal heart sound present and S2 normal heart sound present GI: Auscultation: normal bowel sounds Urinary Catheter: Urinary Catheter: patent and draining Skin: Other: Incision clean, dry, and intact. No drainage or bleeding. Neuro: Speech: normal speech Extrem: General: normal to inspection Psych: Affect: normal affect Attitude: cooperative
--- NOTE | 2022-02-19 08:56 | WPDANLDPN2 ---
Anes-Prog Note L&D Date/Time: 02/19/22 08:56 Comfortable throughout: labor and delivery Neuraxial method: epidural Epidural/Spinal procedure site: clean & non-tender Neuro status: Neuro function grossly intact. Cardiovascular status: normal Respiratory status: normal Airway patency: baseline Mental status: baseline Post-Op hydration status: normal Vital Signs: Last Vital Signs Temp 37.6 C 02/19/22 04:30 Pulse 78 02/19/22 04:30 Resp 16 02/19/22 04:30 BP 99/64 L 02/19/22 04:30 Pulse Ox 97 02/19/22 04:30 O2 Del Method Room Air 02/19/22 04:25 Pain score (VAS): 3 I/O: Intake & Output 02/18/22 02/19/22 02/19/22 23:59 07:59 15:59 Intake Total 1000 620 Output Total 2540 300 Balance -1540 320 Post-procedural complaints: none Patient feedback: Patient satisfied with anesthetic care.
[2022-02-19] MEDS: MULTIVIT/MIN/PREN/FOL AC/IRON TABLET 1 TAB PO (09:06)
[2022-02-19] MEDS: DOCUSATE SODIUM 100 MG CAPSULE PO ×2 (09:07→20:34)
[2022-02-19] MEDS: POLYSACCHARIDE IRON COMPLEX 150 MG CAPSULE PO ×2 (09:07→20:34)
[2022-02-19] MEDS: KETOROLAC 30 MG/ML VIAL (*BKC) IV PUSH (09:09)
--- NOTE | 2022-02-19 11:22 | PCCCNOTE ---
Addendum entered by REN Ramirez 02/19/22 12:46: Recvd email from [facility] that states: Your information has been reviewed and assessed by a Tooling Inspector. The information you provided met the criteria for a Child Welfare Referral to offer services/provide support to the involved family. JEAN Gibbons aware that pt. able to discharge home with pt. and DCFS to follow up with pt. at home. Original Note: Recvd notification of pt. having prior alcohol use during . Met with pt. and JACQUELINE Mascorro at bedside. Pt. reports she and will be living with her 4 and 10 year old children at home, and JACQUELINE Mascorro. Pt. reports has people in her life who are supportive and has all necessary supplies for new baby. Pt. reports being established with both [facility] and [employer] [place]. Pt. denies prior DCFS involvement and drug use. resources provided. DCFS report made online #[id number]. JEAN Gibbons aware and states possible discharge for pt. on . Baby's umbilical cord is pending. No UDS completed for pt. here.
[2022-02-19 11:45] LABS: Rapid Plasma Reagin Non-Reactive (NonReactive)
--- NOTE | 2022-02-19 14:44 | PC.NURSE ---
[id number] RN received report that mother desires to pump and feed. Introductions were made to mother, then consulted with her to assess needs related to . Mother led the conversation with her experience feeding her infant so far and states she desires to exclusively breastfeed. Mother states she pumped once and there was no milk so she supplemented infant with formula and will pump when her milk comes in. Educated mother on consistently pumping every 3 hours for good milk production. Mother works well with her with encouragement and education.Father of baby is supportive. Encouraged and reviewed understanding of the benefits of skin to skin (unwrapping infant and placing vertically on her chest), responsive feeding and how to watch for early feeding signs, frequency of feeding on demand about every 8-12 times in 24 hours (every 2-3 hours), milk production, duration of feeding, signs of adequate intake/output and how to record on the feeding sheet. Reviewed positioning and ear, shoulder, hip alignment, supporting the breast, asymmetrical latch (off-center), and leading with the chin with a big open side gape. Resources used to facilitate learning were used with the visual handouts/ tool/mom and baby guide. Breast pump provided prior to shift due to ineffective . Instructions given on cleaning, care, usage, there should be no pain, pumping schedule for milk production, collection, and storage of human milk. Parents are encouraged to record pumping schedule on the feeding sheet. Reviewed the importance of consistently pumping every 3 hours for milk production. RN syringe fed 1.5 mls of pumped breastmilk to infant. Mother voiced understanding of the education shared and plans to pump at 1500. Mother voiced understanding of responsive feedings, stimulating with skin to skin, talking to infant to encourage if it has been 2 -3 hours since the start of the last , to call if infant does not latch or there is discomfort with . Reported to the primary RN Edwige. [phone] RN Called to the room to assist with . Mother states infant was showing feeding cues but latched small and it hurt. Reviewed education multiple times with mother on watching for big open wide gape for optimal latching, positioning with and breast, holding breast and bringing to breast. Infant opens wide with no latch, then goes to sleep. Nipple shield provided to mother due to ineffective . Reviewed good handwashing, cleaning the nipple shield and application. Discussed with mom the nipple shield precautions, possible complications associated with the risks and benefits. Reviewed practicing with a nipple shield, then without and how to protect the milk supply and production. Infant attempts to latch with the shield and mother states he just bit me, I know he doesn't have teeth but that is what is feels like . After attempting to encourage infant to latch for 25 min RN reminded mother to rest and remember to eat and take care of herself as well. Mother desires pumping now instead of at 1500 to be able to feed what she can pump. After mother pumped 0.5mls it was syringe fed to infant. Mom and baby guide was referred to as a resource for using a nipple shield, out-patient services, community resources and when to call a provider. Mom voiced understanding of the importance of hand expression, nipple stimulation and initiating a pumping schedule if infant continues to nurse with the shield. Reported to the primary RN Mira.
[2022-02-19] MEDS: IBUPROFEN 600 MG TABLET PO ×2 (14:59→20:50)
[2022-02-20] MEDS: IBUPROFEN 600 MG TABLET PO ×3 (06:02→19:46)
[2022-02-20 07:20] VITALS: BP 111/65; PULSE 86; RESP 16; TEMP 37; O2SAT 98
--- NOTE | 2022-02-20 07:36 | P.PNOB_ITS ---
OB - PN: Subj Subjective Date/time seen: 02/20/22 07:10 Patient comments: pain well controlled [place] baby status: doing well feeding status: breast and bottle feeding OB - PN: Obj Data Labs CBC & Chem 7: 02/19/22 04:33 Labs: Laboratory Results - last 24 hr 02/18/22 11:00 RPR Non-reactive OB - PN A/P Plan day: 2 Plan: routine care Comments: Discussed plan of care with pt. Plan for discharge home tomorrow. Time Spent With Patient Time: Total time spent is greater than 50% in coordination of care (as documented) at patient's floor/unit and/or counseling patient: Review of Systems Review of Systems: All systems reviewed & are unremarkable except as noted in HPI and below Exam Const: Orientation/consciousness: patient oriented x3 Limitations: no limitations Resp: Effort & Inspection: normal respiratory effort and able to speak in co mplete sentences Auscultation: clear to auscultation bilaterally Cardio: Rate: regular rate Peripheral pulses: Peripheral pulses 2+ throughout GI: Inspection: normal to inspection and other (passing flatus) Auscultation: normal bowel sounds : General: Yes bladder normal to palpation and Yes other (urinating without difficulty) External Female Exam: other (lochia small) Bimanual exam- vagina & uterus: bladder normal to palpation Other: Fundus firm Skin: General skin exam: normal color Other: Incision clean, dry, intact. No drainage. Neuro: General: patient oriented x3 Cognition (Neuro): normal cognition Speech: normal speech Extrem: General: normal to inspection Psych: Appearance: grossly normal Mental Status: mental status grossly normal Speech and movement: Normal speech and movement present Affect: normal affect Attitude: cooperative
--- NOTE | 2022-02-20 09:45 | PC.NURSE ---
PT introductions made and plan of care discussed per post , post op c section, pain management, breast feeding, bottle feeding, daily care activities. PT sole recipients of such instructions. No barriers to learning identified at this time. PT received such instructions this shift via one to one discussion, mom baby care guide and demonstrations. PT verbalized understanding of such care.
[2022-02-20] MEDS: POLYSACCHARIDE IRON COMPLEX 150 MG CAPSULE PO ×2 (10:02→17:20)
[2022-02-20] MEDS: LANOLIN (LANSINOH) 7.5 GM CREAM 1 APPLIC TOPICAL (10:02)
[2022-02-20] MEDS: MULTIVIT/MIN/PREN/FOL AC/IRON TABLET 1 TAB PO (10:02)
[2022-02-20] MEDS: HYDROcodone/acetaminophen (*CRX) 5-325 MG TABLET 1 TAB PO ×3 (10:03→19:47)
[2022-02-20] MEDS: DOCUSATE SODIUM 100 MG CAPSULE PO ×2 (10:04→17:20)
[2022-02-20] MEDS: SIMETHICONE 80 MG TAB.CHEW PO ×3 (10:05→17:20)
--- NOTE | 2022-02-20 14:40 | PC.NURSE ---
1330 - Primary RN reported patient has chosen to pump and feed.
--- NOTE | 2022-02-20 14:50 | PC.NURSE ---
0800 - Primary RN reported that mother has been bottle feeding formula through the night and not pumping. 1430 - Primary RN reported that mother is happy and bottle feeding formula and mother is not pumping. Pt has not called out for assistance today.
[2022-02-20 19:40] VITALS: BP 111/71; PULSE 91; RESP 14; TEMP 37.1; O2SAT 100
[2022-02-21 07:30] VITALS: BP 107/48; PULSE 80; RESP 18; TEMP 36.8; O2SAT 100
--- NOTE | 2022-02-21 08:00 | PC.NURSE ---
0769 Mother led the conversation with her experience and plan to feed her so far and her ability to pump and feed her infant human milk. Mother states she didn't feel good yesterday and didn't pump but started pumping again and pumps 30 mls from each breast when she pumps. Reminded parents to use good handwashing technique to prevent infection. Mother is feeding appropriately for growth of infant and understands stimulating to eat if needed. Infant has had appropriate feedings in the last 24 hours meets the outcomes for weight, output and jaundice at this time. Mother states she is confident to continue pump and feed her at home or when to call for assistance and denies any additional assistance or education at this time. Reinforced understanding of milk production, transition of milk, signs of adequate intake, prevention/relief of engorgement, responsive after visualizing feeding cues, the different methods of stimulating infant to breastfeed 2-3 hours after the start of the last feeding, community resources, medication information reviewed per [facility] and when to call a provider using the resource of the mom and baby guide/[facility] website. Mother voiced understanding of the education shared. Reported to the primary RN.
[2022-02-21 10:15] VITALS: PULSE 80; RESP 18; O2SAT 100
--- NOTE | 2022-02-21 10:59 | PM.OBPNVD ---
OB - PN: Subj Subjective Date/time seen: 02/21/22 10:59 Patient comments: no complaints and pain well controlled baby status: doing well OB - PN: Obj Data Labs CBC & Chem 7: 02/19/22 04:33 OB - PN A/P Plan day: 3 Plan: routine care, discharge home and follow up 6 weeks (and 1 wk) Comments: plans no control recommend at least for 9 months to use condoms Time Spent With Patient Time: Total time spent is greater than 50% in coordination of care (as documented) at patient's floor/unit and/or counseling patient: Exam : Bimanual exam- vagina & uterus: other (Uterus firm, nt @U)
[2022-02-21] MEDS: POLYSACCHARIDE IRON COMPLEX 150 MG CAPSULE PO (12:00)
[2022-02-21] MEDS: SIMETHICONE 80 MG TAB.CHEW PO (12:00)
[2022-02-21] MEDS: DOCUSATE SODIUM 100 MG CAPSULE PO (12:01)
[2022-02-21] MEDS: HYDROcodone/acetaminophen (*CRX) 5-325 MG TABLET 1 TAB PO (12:01)
[2022-02-21] MEDS: IBUPROFEN 600 MG TABLET PO (12:02)
[2022-02-21] MEDS: MULTIVIT/MIN/PREN/FOL AC/IRON TABLET 1 TAB PO (12:02)
--- NOTE | 2022-02-21 13:45 | PC.NURSE ---
PT discharged to home ambulatory accompanied by spouse and and taken to waiting car. Follow up appts confirmed
--- NOTE | 2022-02-21 13:45 | PC.NURSE ---
PT received discharge instructions per protocol and verbalized understanding of such instructions.
[2022-02-22 11:04] VITALS: BP 126/82; PULSE 90; RESP 20; TEMP 37.6; O2SAT 100
== END 2022-02-21 13:45 | disposition home or self-care (01) | DRG 540 ==
LOC: ANHLDR 20:22 → ANHOB2 22:52
PROVIDERS: Admitting Provider Obstetrics & Gynecology Gynecology; Visit Provider Obstetrics & Gynecology Gynecology
PROC: 10D00Z1 Extraction of Products of Conception, Low, Open Approach (ICD-10-PCS; CPT 59514; principal; 2022-02-18 20:00)
DX: O36.8330 Maternal care for abnormalities of the fetal heart rate or rhythm, third trimester, not applicable or unspecified (principal); Z37.0 Single live birth; Z3A.38 38 weeks gestation of pregnancy; O99.824 Streptococcus B carrier state complicating childbirth
CPT/HCPCS: 36415; 85025; 86592; 86850; 86900; 86901; 88307; A9270; J0290; J0690; J1200; J1885; J2274; J2370; J2405; J2590; J2795; J3105; J7030; J7120

== ENCOUNTER 2022-12-08 14:58 | Emergency (ER) | payer OTHER, SELFPAY ==
--- NOTE | ~2022-12-08 | CT_ITS ---
EXAMINATION: CT brain wo con DATE: 12/08/2022 21:17 INDICATION: confusion, intermittent dizziness . TECHNIQUE: Computed tomography (CT) of the head was performed without intravenous contrast. The mA wa s adjusted according to patient size. Iterative reconstruction technique was employed. The dose-lengt h product was 681.00 mGy-cm. COMPARISON: None. FINDINGS: No acute intracranial hemorrhage or extra-axial fluid collection. No hydrocephalus, mass, or herniation. Enlarged of the pituitary gland. No acute ischemic infarct. Unremarkable dural venous sinus attenuation. No acute osseous abnormality. The aerated spaces are clear. IMPRESSION: No acute intracranial process. Enlarged pituitary gland. Consider outpatient MR pituitary for further evaluation. Reviewed, dictated and finalized at location K.
--- NOTE | ~2022-12-08 | XR_ITS ---
IMPRESSION: No acute cardiopulmonary process. EXAMINATION: XR chest 2V Exam Date/Time: 12/08/2022 20:33 CDT HISTORY: palpitations AND AMS Comparison: 04/07/2019. RESULT: Lines, tubes, and devices: None. Lungs and pleura: Clear. Cardiomediastinal silhouette: Stable. Other: No acute osseous or upper abdominal finding. IMPRESSION: No acute cardiopulmonary process. Reviewed, dictated and finalized at location K.
--- NOTE | 2022-12-08 15:05 | ECG_ITS ---
Measurements Intervals [place] Rate: 82 P: 63 RI: 179 QRS: 51 QRSD: 89 T: 49 QT: 359 QTc: 420 Interpretive Statements SINUS RHYTHM COMPARED TO ECG 04/07/2019 13:37:31 NO SIGNIFICANT CHANGES Electronically Signed On 12-09-2022 12:19:55 CDT by Jaquelin Gallardo M.D.
--- NOTE | 2022-12-08 15:10 | PC.NURSE ---
Pt leaves w/c and approaches intake desk and states I need to see a doctor, Im gonna fall. This RN recommended pt return to w/c and do not get up. Advised will be triaging her next and getting vital signs. Pt states I already tried sitting in the wheelchair. Pt ambulated back to w/c w/out difficulty. Pt then got up to follow male out of ED and heard stating Why are you leaving? I thought you were gonna stay with me and be supportive. Pt having conversation w/ male outside of ED doors. No difficulty with ambulation noted.
[2022-12-08 15:27] VITALS: BP 111/77; PULSE 83; RESP 18; TEMP 36.2; O2SAT 97
--- NOTE | 2022-12-08 15:46 | PC.NURSE ---
Attempting to get EKG on pt, pt uncooperative. Not wanting to get off the phone or hold still to get EKG done. Pt yelling at this RN.
[2022-12-08 16:03] LABS: Basophils Percent Auto 0.5 % (0.2-1.2); Hematocrit 40.9 % (37.0-47.0); Hemoglobin 13.4 g/dL (12.0-15.0); Immature Granulocyte Absolute 0.02 K/mm3 (0.00-0.031); Immature Granulocyte Percent A 0.5 % (0-0.5); Lymphocytes Absolute Auto 2.23 K/mm3 (0.9-3.2); Lymphocytes Percent Auto 55.2 % (18.3-44.2); Mean Corpuscular HGB Conc 32.8 g/dl (32-36); Mean Corpuscular Hemoglobin 31.1 pg (26-34); Mean Corpuscular Volume 94.9 fl (80-100); Mean Platelet Volume 8.8 fl (7.4-10.4); Monocytes Absolute Auto 0.4 K/mm3 (0.1-0.6); Monocytes Percent Auto 9.2 % (2.6-8.5); Neutrophils Absolute Auto 1.4 K/mm3 (1.3-6.7); Neutrophils Percent Auto 33.6 % (45.5-73.1); Platelet Count Result 267 k/mm3 (150-375); Red Blood Count 4.31 M/mm3 (4.2-5.4); Red Cell Distribution Width 13.8 % (11.5-14.5)
[2022-12-08 16:13] LABS: Alanine Aminotransferase 27 U/L (6-35); Albumin Level 4.6 g/dL (3.5-5.1); Alkaline Phosphatase 79 U/L (38-126); Anion Gap 13 mmol/L (8-16); Aspartate Amino Transferase 51 U/L (14-36); Bilirubin,Total 0.4 mg/dL (0.2-1.3); Blood Urea Nitrogen 6 mg/dL (7-17); Calcium 8.3 mg/dL (8.4-10.2); Carbon Dioxide 29 mmol/L (22-30); Chloride 103 mmol/L (98-107); Estimated CRCL calculation 108 ml/min; Estimated Glomerular Filt Rate > 60; Glucose 121 mg/dL (65-110); Potassium 3.8 mmol/L (3.4-5.0); Sodium 145 mmol/L (137-145)
--- NOTE | 2022-12-08 16:14 | PC.NURSE ---
Pt ambulated out of w/r w/ steady gait, received take out food (advised to remain NPO until exam). Pt eating w/ male.
--- NOTE | 2022-12-08 20:00 | PC.NURSE ---
Patient comes to desk stating I have been here for a long time, I need to go back to a room! Patient informed that patients go back based on acuity and that she will be called back as soon as a room becomes available. Patient states this is ridiculous and walks to vestibule.
--- NOTE | 2022-12-08 20:34 | ED.GENADULT ---
HPI - General Adult General Chief complaint: Unspecified Stated complaint: im unconcious, i think im having a seizure Time Seen by Provider: 12/08/22 20:14 History of Present Illness HPI narrative: 32-year-old female here with her for multiple medical complaints. Patient is disheveled, tangential, disoriented in her speech. She has multiple complaints, stating that she is out of sorts, has palpitations after drinking alcohol, is depressed, has low vitamin D levels, low iron levels. She states this is just been going on today but then later on questioning she states has been going on for 6 months. She reported to the triage nurse that she feels like she is unconscious and is having a seizure. Denies drug use. She is 6 months . Denies any psychiatric history previous admissions. She does not take any medicines on a daily basis and is previously healthy. She admits to alcohol use today. Related Data Home Medications Medication Instructions Recorded Confirmed No Home Medications 08/27/21 08/27/21 vit no.133-ferrous 1 tablet PO DAILY 02/18/22 02/18/22 fumarate 28 mg-folic acid 800 mcg tablet () Allergies Allergy/AdvReac Type Severity Reaction Status Date / Time No Known Allergies Allergy Verified 05/20/22 15:01 Review of Systems Review of Systems: Gen.: Denies fevers or chills Eyes: Denies eye pain or visual change ENT: Denies congestion Respiratory: Denies shortness of breath or cough CV: Denies chest pain or palpitations GI: Denies abdominal pain nausea, emesis or diarrhea denies burning, urgency, frequency or hematuria Musculoskeletal: Denies back pain or muscle pain Neuro: Denies numbness, tingling, weakness or focal weakness Skin: Denies rash Except as documented, all other systems reviewed and negative PMFSH Past Medical History Medical History No active medical problems (normal spontaneous vaginal delivery) X2 Social History Social History (System 05/20/22 @ 15:01 by Lucinda Russell) Years smoked: 30 Smoking status: Current every day smoker Second hand tobacco smoke exposure: Yes Substance use: never Other substance usage details: alcohol early in Spiritual care concerns: No Exam Narrative: APPEARANCE: Well appearing, no pain in distress, well-nourished. Head: Normocephalic and atraumatic. EYES: PERRLA/EOMI, conjunctivae clear NOSE: No nasal drainage EARS: External ear normal in appearance THROAT: Oropharynx is clear. Mucous membranes are moist. NECK: Supple. No adenopathy, no masses. RESPIRATORY: Airway patent, respirations nonlabored. Clear to auscultation bilaterally, no rales, rhonchi, wheezing. CARDIOVASCULAR: Regular rate and rhythm without murmurs, rubs, or gallops. ABDOMINAL: Normoactive bowel sounds. Soft, nontender, nondistended. No rebound tenderness or guarding. MUSCULOSKELETAL: Extremities are warm and well-perfused. Moves all extremities well. No edema. NEURO: Normal speech. No focal neurologic deficits. SKIN: Skin is warm and dry. No rashes. PSYCHIATRIC: Disheveled, avoids eye contact, pressured speech, guarded affect Course Vital Signs Vital signs: Vital Signs Temperature 97.2 F L 12/08/22 15:27 Pulse Rate 83 12/08/22 15:27 Respiratory Rate 18 12/08/22 15:27 Blood Pressure 111/77 12/08/22 15:27 Pulse Oximetry 97 12/08/22 15:27 Oxygen Delivery Room Air 12/08/22 15:27 Temperature 97.2 F L 12/08/22 15:27 Pulse Rate 76 12/08/22 22:05 Respiratory Rate 16 12/08/22 22:05 Blood Pressure 124/82 12/08/22 22:05 Pulse Oximetry 100 12/08/22 22:05 Oxygen Delivery Room Air 12/08/22 15:27 Medical Decision Making [facility] Narrative Medical decision making narrative: 32-year-old female here due to concerns of multiple medical complaints as per HPI. Patient is intoxicated, tangential and disheveled appearing. He
[2022-12-08 21:23] VITALS: BP 124/88; PULSE 90; RESP 16; O2SAT 100
[2022-12-08 21:27] LABS: Acetaminophen < 10 ug/mL (10-30); Ethanol 258 mg/dL (<10)
[2022-12-08 21:54] LABS: SARS-CoV-2 RNA PCR Negative
[2022-12-08 21:55] LABS: Appearance Urine Cloudy (Clear); Bacteria Urine Rare /hpf; Bilirubin Urine Negative (Negative); Blood Urine Negative (Negative); Color Urine Yellow (Yellow); Glucose Urine UA Negative (Negative); Ketones Urine Trace mg/dL (Negative); Leukocyte Esterase Ur Trace LEU/UL (Negative); Nitrate Urine Negative (Negative); Non Pathogenic Casts 0-2; Protein Urine Trace mg/dL (Negative); RBC Urine 0-2 /hpf (0-2); Squamous Epithelial Cell Urine Moderate /hpf (Few); WBC Urine 0-5 /hpf; pH Urine 6.5 (5.0-9.0)
[2022-12-08 22:05] VITALS: BP 124/82; PULSE 76; RESP 16; O2SAT 100
[2022-12-08 22:05] LABS: Amphetamine Screen Urine Negative (Negative); Barbiturate Screen Urine Negative (Negative); Benzodiazepines Screen Urine Negative (Negative); Cannabinoid Screen Urine Negative (Negative); Cocaine Screen Urine Negative (Negative); Methadone Screen Urine Negative (Negative); Opiate Screen Urine Negative (Negative); Phencyclidine Screen Urine Negative (Negative)
[2022-12-08 22:07] LABS: Add Urine Microscopic? YES
== END 2022-12-08 22:42 | disposition home or self-care (01) ==
PROVIDERS: Emergency Medicine; Physician Assistant; Emergency Provider Physician Assistant
DX: F10.920 Alcohol use, unspecified with intoxication, uncomplicated (principal); F17.210 Nicotine dependence, cigarettes, uncomplicated; Z20.822 Contact with and (suspected) exposure to COVID-19
CPT/HCPCS: 36415; 70450; 71046; 80053; 80307; 81001; 81025; 84443; 85025; 93005; 99284; U0003; U0005

== ENCOUNTER 2023-07-27 11:52 | Emergency (ER) | payer OTHER, SELFPAY ==
--- NOTE | ~2023-07-27 | XR_ITS ---
EXAMINATION: XR chest 2V DATE: 07/27/2023 13:00 INDICATION: Chest pain. Diarrhea. TECHNIQUE: Frontal and lateral views of the chest were obtained. COMPARISON: Chest 2 views 12/08/2022 FINDINGS: There is no pneumonia, pleural effusion, or pneumothorax. The heart size is normal. IMPRESSION: 1. No acute cardiopulmonary disease. Reviewed, dictated and finalized at location A. [employer]
--- NOTE | 2023-07-27 11:53 | ECG_ITS ---
Measurements Intervals [place] Rate: 74 P: 136 FL: 140 QRS: 185 QRSD: 86 T: 186 QT: 395 QTc: 439 Interpretive Statements SINUS RHYTHM ARM LEADS REVERSED BORDERLINE T WAVE ABNORMALITY- ANT/INF LEADS BASELINE ARTIFACT- I, II, III, AVR, AVL, AVF BORDERLINE ECG COMPARED TO ECG 12/08/2022 20:20:27 T WAVE ABNORMALITY NOW PRESENT Electronically Signed On 07-27-2023 14:30:42 RECREATION COUNSELOR by Carter Leroy D.O.
[2023-07-27 12:01] VITALS: BP 142/89; PULSE 81; RESP 20; TEMP 36.4; O2SAT 100
[2023-07-27 12:21] LABS: Basophils Percent Auto 0.6 % (0.2-1.2); Eosinophils Absolute Auto 0.1 K/mm3 (0-0.3); Eosinophils Percent Auto 1.2 % (0-4.4); Hematocrit 40.4 % (37.0-47.0); Hemoglobin 13.2 g/dL (12.0-15.0); Immature Granulocyte Absolute 0.02 K/mm3 (0.00-0.031); Immature Granulocyte Percent A 0.4 % (0-0.5); Lymphocytes Absolute Auto 1.25 K/mm3 (0.9-3.2); Lymphocytes Percent Auto 25.5 % (18.3-44.2); Mean Corpuscular HGB Conc 32.7 g/dl (32-36); Mean Corpuscular Hemoglobin 31.3 pg (26-34); Mean Corpuscular Volume 95.7 fl (80-100); Mean Platelet Volume 9.1 fl (7.4-10.4); Monocytes Absolute Auto 0.4 K/mm3 (0.1-0.6); Monocytes Percent Auto 8.2 % (2.6-8.5); Neutrophils Absolute Auto 3.1 K/mm3 (1.3-6.7); Neutrophils Percent Auto 64.1 % (45.5-73.1); Platelet Count Result 292 k/mm3 (150-375); Red Blood Count 4.22 M/mm3 (4.2-5.4); Red Cell Distribution Width 12.9 % (11.5-14.5); White Blood Count 4.9 K/mm3 (4.5-10.0)
[2023-07-27 12:26] LABS: Alanine Aminotransferase 40 U/L (6-35); Albumin Level 4.4 g/dL (3.5-5.1); Alkaline Phosphatase 77 U/L (38-126); Anion Gap 13 mmol/L (8-16); Aspartate Amino Transferase 59 U/L (14-36); Bilirubin,Total 0.8 mg/dL (0.2-1.3); Blood Urea Nitrogen 6 mg/dL (7-17); Calcium 8.5 mg/dL (8.4-10.2); Carbon Dioxide 24 mmol/L (22-30); Chloride 102 mmol/L (98-107); Estimated CRCL calculation 125 ml/min; Estimated Glomerular Filt Rate > 60; Glucose 108 mg/dL (65-110); Lipase 70 U/L (23-300); Potassium 3.5 mmol/L (3.4-5.0); Sodium 139 mmol/L (137-145)
[2023-07-27 12:29] LABS: INR 1.1; Partial Thromboplastin Time 31.5 SECONDS (22.3-36.8); Prothrombin Time 14.4 Seconds (11.1-14.7)
[2023-07-27 12:38] LABS: Troponin I < 0.012 ng/mL (0.000-0.034)
[2023-07-27 13:31] VITALS: BP 146/92; PULSE 71; RESP 15; O2SAT 98
--- NOTE | 2023-07-27 13:34 | ED.GENADULT ---
HPI - General Adult General Chief complaint: Unspecified Stated complaint: chest pain Time Seen by Provider: 07/27/23 13:32 History of Present Illness HPI narrative: Patient is a 33-year-old female who presents to the emergency department this morning with multiple complaints. Patient states that she has been having some chest pressure, anxiety, depression, and tremors which she attributes to her alcohol use. Patient admits that her last drink was this morning. Patient states that ever since she had her 3rd baby approximately a year and a half ago, she has been struggling with depression. Patient states that her fiance seems to not pain much attention to this and has been progression of her symptoms as he does not typically in mental illness including depression and anxiety. Patient wanted to get on antidepression medication, however, he told her not to. 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 She states that she did go into a rehab facility for 1 month this past January and states that has helped tremendously, however, she ended up relapsing back to alcohol use to cope with her under medicated depression. Patient does have good resources in regards to rehab facilities and is willing to check herself back in 2 1 about once to take the appropriate steps and treating her depression so that this time when she finishes for rehab she does not relapse. Patient denies any specific symptoms including shortness of breath, nausea, vomiting, abdominal pain, dysuria, hematuria, constipation, diarrhea, melena, hematochezia, fevers or chills. Patient also denies any headaches, dizziness, lightheadedness, blurry visions, focal weakness, numbness and or tingling. There are no other modifying, alleviating, or precipitating factors at this time. Related Data Home Medications Medication Instructions Recorded Confirmed vit no.133-ferrous 1 tablet PO DAILY 02/18/22 02/18/22 fumarate 28 mg-folic acid 800 mcg tablet () Allergies Allergy/AdvReac Type Severity Reaction Status Date / Time No Known Allergies Allergy Verified 07/27/23 13:39 Review of Systems Review of Systems: All systems are reviewed and are negative unless stated otherwise in the HPI. [facility] Past Medical History Medical History No active medical problems (normal spontaneous vaginal delivery) X2 Social History Social History Years smoked: 30 Smoking status: Current every day smoker Second hand tobacco smoke exposure: Yes Substance use: never Other substance usage details: alcohol early in Spiritual care concerns: No Exam Narrative: General: Alert, awake, afebrile, in no acute distress, anxious and tearful. HEENT: PERRL, no rhinorrhea, no post nasal drip, oropharynx clear. Neck: Trachea midline, no JVD, no lymphadenopathy. Cardiovascular: Regular rate and rhythm, no murmurs, rubs or gallops, no peripheral edema. Respiratory: Clear to auscultation bilaterally, no tachypnea, no wheezing, no rhonchi, no rubs, no respiratory distress. Abdomen: Soft, nontender, nondistended, no rebound, no guarding, no peritoneal signs. Musculoskeletal: No joint swelling or deformity, normal muscle tone, tremulous. Skin: No rashes or petechia, no signs of infection. Psychiatric: Alert and oriented, sad and tearful, otherwise, normal behavior and judgment for situation. Neurological: Alert and oriented to person, place, and time. Follows all commands. No focal deficits, speech is clear and fluent. Course Vital Signs Vital signs: Vital Signs Temperature 97.6 F 07/27/23 12:01 Pulse Rate 81 07/27/23 12:01 Respiratory Rate 20
[2023-07-27 13:46] VITALS: BP 126/88; PULSE 71; RESP 23; O2SAT 100
[2023-07-27 14:01] VITALS: BP 123/92; PULSE 74; RESP 19; O2SAT 100
[2023-07-27 14:16] VITALS: BP 141/99; PULSE 73; RESP 14; O2SAT 99
[2023-07-27] MEDS: LORazepam (*CRX) 1 MG TABLET PO (14:45)
[2023-07-27 14:50] VITALS: BP 122/87; PULSE 82; RESP 16; O2SAT 98
== END 2023-07-27 14:50 | disposition home or self-care (01) ==
PROVIDERS: Emergency Provider Emergency Medicine
DX: R07.89 Other chest pain (principal); F41.9 Anxiety disorder, unspecified; F32.A Depression, unspecified; F10.10 Alcohol abuse, uncomplicated; F17.210 Nicotine dependence, cigarettes, uncomplicated; Y90.9 Presence of alcohol in blood, level not specified
CPT/HCPCS: 36415; 71046; 80053; 83690; 84484; 85025; 85610; 85730; 93005; 99284; A9270